=== PATIENT | female | born 1985 | race Two or more races ===

== ENCOUNTER 2023-04-18 08:28 | Emergency (ER) | payer OTHER ==
[~2023-04-18] VITALS: Ht 172.7 cm; Wt 68.0 kg
== END 2023-04-18 11:00 | disposition home or self-care (01) ==
LOC: ER 08:28
DX: S91.312A Laceration without foreign body, left foot, initial encounter (principal); W05.2XXA Fall from non-moving motorized mobility scooter, initial encounter; Y93.89 Activity, other specified; Y92.89 Other specified places as the place of occurrence of the external cause; Y99.9 Unspecified external cause status